=== PATIENT | male | born 1925 | race African-American/Black ===

== ENCOUNTER → 2016-08-04 | Outpatient (CLI) | payer OTHER ==
[~2016-08-04] MED LIST: COMBIVENT INH; COUMADIN 5 MG TA5 M1 PO; COUMADIN7.5 MG PO; FLONASE 0.05%50 MCG NASAL; LEVOTHYROXIN0.025 MG PO; LIPITOR 20 MG T20 M1 PO; MIDODRINE HCL 55 M1 PO; NEPHRO-VITE TA0.8 MG PO; PHOSLO667 MG PO; ROCALTROL1 MCG/1 ML PO; TYLENOL325 MG PO; VITAMIN D-32000 UNIT PO
== END ==
LOC: MRI 07:24
DX: M86.041 Acute hematogenous osteomyelitis, right hand (principal); M79.644 Pain in right finger(s)